=== PATIENT | female | born 1955 | race Caucasian/White ===

== ENCOUNTER 2022-09-05 20:20 | Emergency (ER) | payer MEDICARE, OTHER ==
[~2022-09-05] VITALS: Ht 170.2 cm; Wt 59.0 kg
--- OUTSIDE RECORDS SUMMARY | 2022-09-05 20:22 | XMS ---
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 Kd VISIT COUNT (12 MO.) 1 SOMMER [place] TOTAL 1 NOTE: Visits indicate total known visits. ED/UCC VISIT TRACKING (12 MO.) 09/05/2022 20:21 [facility] TYPE: Emergency COMPLAINT: - [facility] INPATIENT VISIT TRACKING (12 MO.) No inpatient visits to display in this time frame [id number]
[2022-09-05] MEDS ORDERED: NICOTINE GUM4 MG BUCCAL (20:25)
[2022-09-05] MEDS ORDERED: QUETIAPINE FUMA25 MG PO (20:25)
[2022-09-05] MEDS ORDERED: OXYCODONE HCL5 MG PO (20:25)
== END 2022-09-05 23:18 | disposition home or self-care (01) ==
LOC: ED 20:20
PROC: 4A0D7LZ Measurement of Urinary Volume, Via Natural or Artificial Opening (ICD-10-PCS; principal; 2022-09-05)
DX: R55 Syncope and collapse (principal)
CPT/HCPCS: 36415; 51798; 70450; 80053; 81003; 85025; 86850; 86900; 86901; 96374; 99284-25; J2405; J7121

== ENCOUNTER 2024-10-03 21:23 | Inpatient (IN) | payer MEDICARE, MEDICAID ==
[~2024-10-03] VITALS: Ht 170.2 cm; Wt 85.7 kg
[~2024-10-03 21:23] MED LIST: NICOTINE GUM4 MG BUCCAL; OXYCODONE HCL5 MG PO; QUETIAPINE FUMA25 MG PO
[2024-10-03 21:41] LABS: HEMOGLOBIN 14.9 g/dL (12.0-18.0)
[2024-10-03 21:44] LABS: BASOPHILS 0.8 % (0-2); EOSINOPHILS 0.2 % (0-6); HEMATOCRIT 45.1 % (35.0-50.0); LYMPHOCYTES 26.8 % (24-44); MCH 30.2 (27-36); MCV 91.6 fl (81-99); MONOCYTES 6.8 % (0-12); NEUTROPHILS 65.4 % (39-80); PLATELET COUNT 218 K/uL (140-440); RBC 4.92 M/ul (4.3-5.7); RDW 13.7 (10.5-15.0)
[2024-10-03] MEDS ORDERED: IBLOOD GLUCOSE TEST STRIP 1 EA TEST XX ONE (21:45)
[2024-10-03 21:50] LABS: PROTIME 13.1 Sec (11.2-14.2)
[2024-10-03 21:52] LABS: PARTIAL THROMBOPLASTIN TIME 27.3 Sec (22.9-41.3)
[2024-10-03 21:59] LABS: ALBUMIN 3.7 g/dL (3.4-5.0); ALBUMIN/GLOBULIN RATIO 0.97 (1.1-2.4); ALCOHOL, MEDICAL <3 ng/dL (<3); ALKALINE PHOSPHATASE 103 U/L (46-116); ALT (SGPT) 34 U/L (14-59); ANION GAP 16.8 (7-21); AST (SGOT) 82 U/L (15-37); BILIRUBIN, TOTAL 1.2 mg/dL (0.2-1.0); CALCIUM 9.4 mg/dL (8.5-10.1); CARBON DIOXIDE 26 mmol/L (21-32); CHLORIDE 103 mmol/L (98-107); GLOMERULAR FILTRATION RATE,EST 49 mL/min (>60); POTASSIUM 3.8 mmol/L (3.5-5.1); PROTEIN, TOTAL 7.5 g/dL (6.4-8.2); UREA NITROGEN 15 mg/dL (7-18)
[2024-10-03] MEDS ORDERED: ASPIRIN 81 MG CHEW PO ONE (22:15)
[2024-10-03] MEDS ORDERED: NITROGLYCERIN PACKET TOP ONE (22:15)
[2024-10-03 22:27] LABS: BILIRUBIN, URINE POSITIVE (negative); BLOOD/HGB, URINE SMALL (Negative); KETONE, URINE SMALL (Negative); LEUK ESTERASE, URINE SMALL (negative); NITRITE, URINE NEGATIVE (negative); PH, URINE 5.5 (5-7)
[2024-10-03 22:33] LABS: WHITE BLOOD CELLS, URINE 21-40 /HPF (0-5)
[2024-10-03 22:34] LABS: BACTERIA, URINE 2+ /hpf (negative); CASTS, URINE NONE SEEN \\lpf; CRYSTALS, URINE NONE SEEN (0-1+); EPITHELIAL CELLS, URINE SQUAMOUS 2+ /lpf (0-1+)
[2024-10-03 22:35] LABS: COLLECTION TYPE, URINE CLEAN CATCH; REFLEX CULTURE, URINE No (No)
[2024-10-03 22:44] LABS: AMPHETAMINES, URINE NEGATIVE (NEGATIVE); BARBITURATES, URINE NEGATIVE (NEGATIVE); BENZODIAZEPINE, URINE NEGATIVE (NEGATIVE); BUPRENORPHINE, URINE NEGATIVE (NEGATIVE); CANNABINOID, URINE NEGATIVE (NEGATIVE); COCAINE, URINE NEGATIVE (NEGATIVE); ECSTASY, URINE NEGATIVE (NEGATIVE); FENTANYL, URINE NEGATIVE (NEGATIVE); METHADONE, URINE NEGATIVE (NEGATIVE); OPIATES, URINE NEGATIVE (NEGATIVE); OXYCODONE, URINE NEGATIVE (NEGATIVE); PHENCYCLIDINE, URINE NEGATIVE (NEGATIVE)
[2024-10-03] MEDS ORDERED: NEOMYCIN/POLYMYXIN/DEXAMETH OPTH SUSPENSION BOTTLE OD ONE (22:45)
[2024-10-03] MEDS ORDERED: SODIUM CHLORIDE 0.9% 500 ML IV PRN (23:00)
[2024-10-03] MEDS ORDERED: CEFTRIAXONE SODIUM 2 GM VIAL ONE (23:14)
[2024-10-03] MEDS ORDERED: CEFTRIAXONE SODIUM 2 GM in SODIUM CHLORIDE 0.9% 100 ML IV ONE (23:15)
[2024-10-03] MEDS ORDERED: levETIRAcetam 500 MG/5 ML VIAL IV ONE (23:45)
[2024-10-04] VITALS (13 sets, daily range): BP systolic 96–119; BP diastolic 52–90
[2024-10-04 00:12] LABS: PH, VENOUS 7.332 (7.31-7.41)
[2024-10-04] MEDS ORDERED: LORazepam 2 MG/ML VIAL IV ONE (01:30)
[2024-10-04] MEDS ORDERED: LORazepam 2 MG/ML VIAL IV PRN (01:30)
[2024-10-04] MEDS ORDERED: NEOMYCIN/POLYMYXIN/DEXAMETH OPTH SUSPENSION BOTTLE OD SCH (01:30)
[2024-10-04] MEDS ORDERED: ondansetron HCL 4 MG/2 ML VIAL IV PRN ×2 (01:30→09:30)
[2024-10-04] MEDS ORDERED: ACETAMINOPHEN 325 MG TAB PO PRN ×2 (01:30→09:30)
--- NOTE | 2024-10-04 01:50 | NUR ---
PATIENT ARRIVED TO THE UNIT VIA STRETCHER. PATIENT'S SON AT BEDSIDE. PATIENT IS ALERT, ORIENTED TO SELF AND SURROUNDINGS. UNSURE OF EVENTS LEADING TO ADMISSION. PATIENT DENIES ANY PAIN. DOES REPORT RIGHT EYE A "ITCHY". RIGHT EYE IS RED AND SWOLLE, WATERING FREQUENTLY. WARM COMPRESS APPLIED. PATIENT'S LIPS ARE ALSO SWOLLEN WITH AN ABRASION, NO BLEEDING. BRUISING NOTED TO LEFT SIDE/BREAST AND LEFT ARM. PATIENT TOLERATING ROOM AIR, LUNG SOUNDS ARE CLEAR. ABD SOFT, NONTENDER. VS STABLE. PATIENT'S SON ASSIST WITH HISTORY AND ANSWERS MOST QUESTIONS. PATIENT IS DROWSY AND APPEARS TO FALL ASLEEP DURING ADMISSION. ALLOWED PATIENT TO REST. BED ALARM ACTIVE. SON GONE HOME FOR THE NIGHT. CALL [facility] IN REACH.
--- NOTE | 2024-10-04 04:17 | NUR ---
PATIENT APPEARS RESTFUL IN BED. VS STABLE. EYES CLOSED. CALL LIGHT IN REACH.
--- NOTE | 2024-10-04 04:45 | NUR ---
PATIENT ALERT, LAYING IN BED. PATIENT ORIENTED TO PERSON, PLACE, BUT NOT THE YEAR OR EVENT. PATIENT DENIES ANY CONCERNS. DENIES PAIN. VS STABLE. PATIENT DENIES NEED FOR BATHROOM OR WANTING ANY WATER AT THIS TIME. ALLOWED PATIENT TO REST. CALL LIGHT IN REACH. BED ALARM ACTIVE.
--- NOTE | 2024-10-04 05:15 | NUR ---
LAB IN FOR MORNING DRAW. PATIENT IS ALERT AND TALKATIVE. ORIENTED TO HERSELF, SURROUNDINGS, AND FOLLOWS DIRECTIONS. IS UNSURE OF THE DATE AND DOES NOT REMEMBER THE EVENTS LEADING TO ADMISSION. PATIENT DENIES ANY CONCERNS. VS STABLE. PATIENT STATES "I THINK I'M DRUNK". WHEN ASKED IF SHE HAD BEEN DRINKING OR DOING DRUGS PATIENT REPORTS "JUST WHATEVER YOU'VE BEEN PUTTING IN ME" AND POINTING TO HER IV. INFORMED PATIENT ON MEDS SHE HAD RECEIVED AND THE REASON FOR THEM. PATIENT DOES NOT APPEAR TO HAVE A GOOD UNDERSTANDING OF THIS. PATIENT PROVIDED EYE DROPS PER ORDER AND A WARM COMPRESS TO HER EYE. SHE DENIES PAIN IN THE EYE BUT REPORTS ITCHING. PATIENT PROVIDED WARM BLANKET AND THE CALL LIGHT. DENIED NEED TO VOID. BED ALARM ACTIVE.
[2024-10-04 05:41] LABS: BASOPHILS 0.8 % (0-2); EOSINOPHILS 0.4 % (0-6); HEMOGLOBIN 13.2 g/dL (12.0-18.0); LYMPHOCYTES 28.9 % (24-44); MCH 30.9 (27-36); MCHC 33.9 g/dl (30-36); MCV 91.1 fl (81-99); NEUTROPHILS 62.9 % (39-80); PLATELET COUNT 171 K/uL (140-440); RBC 4.28 M/ul (4.3-5.7); RDW 13.8 (10.5-15.0)
[2024-10-04 05:58] LABS: ALBUMIN 3.2 g/dL (3.4-5.0); ALBUMIN/GLOBULIN RATIO 1.03 (1.1-2.4); ANION GAP 12.7 (7-21); BILIRUBIN, TOTAL 0.6 mg/dL (0.2-1.0); BUN/CREATININE RATIO 15.73 (6.0-28.6); CALCIUM 9.1 mg/dL (8.5-10.1); CREATININE, SERUM 0.89 mg/dL (0.55-1.02); POTASSIUM 3.7 mmol/L (3.5-5.1); PROTEIN, TOTAL 6.3 g/dL (6.4-8.2)
--- NOTE | 2024-10-04 07:30 | NUR ---
REPORT RECEIVED FROM AMY JOSÉ. PT RESTING IN BED, EYES CLOSED, RESP EVEN AND UNLABORED.
[2024-10-04] MEDS ORDERED: levETIRAcetam 500 MG TAB PO SCH ×2 (09:00→21:00)
[2024-10-04] MEDS ORDERED: CEFTRIAXONE SODIUM 2 GM in SODIUM CHLORIDE 0.9% 100 ML IV SCH ×3 (09:00→21:00)
--- NOTE | 2024-10-04 09:20 | NUR ---
DOCTOR IN TO SEE PT, SON TRENTON IN TO SEE PT WELL.
--- NOTE | 2024-10-04 10:02 | NUR ---
INTO SEE PATIENT. PATIENT PERSONAL INFORMATION REVIEWED. PATIENT WOULD LIKE A PRIMRARY CARE SET. PATIENT CHOICE LETTER GIVEN. PATIENT REQUESTING [facility]. APPOINTMENT SET UP. PATIENT LIVE IN A HOUSE WITH SON. STEPS INSIDE THE HOME BUT PATIENT LIVES ON MAIN LEVEL. SHE DRIVES BUT RARELY SON DRIVES HER TO THINGS. PATIENT DENIES DIFFCULTY OF PAYING UTLITIES OR OBTAINING FOOD. DOES NOT USE DME. PATIENT HAS A RAMP TO GET INTO THE HOUSE. SON TRENTON AT BEDSIDE STATES HE WILL TAKE HER HOME AT DISCHARGE. NO FUTHER CM NEEDS AT THIS TIME.
--- NOTE | 2024-10-04 10:58 | NUR ---
VISITED VERY BRIEFLY WITH PT PRIOR TO IMAGING. PT SUPPORTED BY SON IN ROOM; PT APPEARED CONFUSED, GREETING ME IF I WAS FAMILIAR EVEN THOUGH THIS WAS OUR FIRST MEETING. PT REMAINED PLEASEANT WHEN SON RE-ORIENTED. PROVIDED PRAYER.
--- NOTE | 2024-10-04 10:59 | NUR ---
MED REC COMPLETE
--- NOTE | 2024-10-04 11:11 | NUR ---
UR CLINICAL REVIEW: 2MN MARTÍNEZ, MEETS INPT FOR ALTERED MENTAL STATUS PERSISTENT FOR SEVERAL HOURS. POTENTIAL SEIZURE DISORDER WITH MEDICATION MANAGEMENT NEEDED. MEDICARE INPT 10/04/24 @ 0119 ORDER MATCHES REG NO AUTH REQUIRED PER MEDICARE RULES DC PLAN PENDING FURTHER EVAL.
--- NOTE | 2024-10-04 11:52 | EKG ---
[facility] [address] [place], [place] [address] Signed Normal sinus rhythm Normal ECG No previous ECGs available Confirmed by Jg Hernandez MD ([id number]) on 10/04/2024 11:52:08 AM Electronically Signed By: JG HERNANDEZ MD 10/04/24 1152 PATIENT NAME: MAXIMUS BOLANOS EILEEN Electrocardiogram DATE OF : 57 PHYSICIAN: JG HERNANDEZ MD REPORT #: [id number] REPORT IS CONFIDENTIAL AND NOT TO BE RELEASED WITHOUT AUTHORIZATION
[2024-10-04] MEDS ORDERED: PHARMACY RENAL DOSE ADJUSTMENT 1 DOSE MISC PO SCH (12:00)
[2024-10-04] MEDS ORDERED: NEOMYCIN/POLYMYXIN/DEXAMETH 3.5 GM TUBE OD SCH (13:00)
--- NOTE | 2024-10-04 13:29 | NUR ---
PT/OT RECCOMEND SENIOR CARE FACILITY. TOOK PATIENT CHOICE LETTER TO PATIENT. STATES "I AM NOT GOING ANYWHERE." ALSO GAVE PATIENT PAID CARE GIVERS PHAMPLET. NO OTHER CM NEEDS AT THIS TIME.
--- NOTE | 2024-10-04 14:08 | NUR ---
SON IN TO SEE PT
[2024-10-04] MEDS ORDERED: NICOTINE POLACRILEX 2 MG GUM MM PRN (15:45)
--- NOTE | 2024-10-04 17:40 | NUR ---
REPORT RECEIVED IN CCU FROM ARNAV OSCAR. PT AMBULATES WITH THIS RN AND FWW FROM ROOM 129 TO ROOM 109. PT TOLERATES WALKING WELL AND FOLLOWS DIRECTION WHILE WALKING. PT IN BED AT THIS TIME. VSS.
--- NOTE | 2024-10-04 18:30 | NUR ---
ASSESSMENT COMPLETE. PT RESTING IN BED AT THIS TIME, WATCHING TELEVISION. UNABLE TO TELL ME THE DATE, UNSURE OF WHY SHE IS IN THE HOSPITAL AND REPEATEDLY ASKING IF SHE CAN GO HOME YET. PT IS PLEASANT AND UNCONCERNED ABOUT HER SHORT TERM MEMORY LOSS. IV IN R AC FLUSHES WNL. SEIZURE PADS PLACED FOR PRECUATION. TELE #[address] PT HAS NO REQUESTS AT THIS TIME, CALL LIGHT IN REACH.
--- NOTE | 2024-10-04 18:45 | NUR ---
PT AMBULATES WITH SBA ONLY, PROVIDES HER OWN JOSE-CARE, AND PROVIDES VOID INTO HAT IN TOILET. URINE NOTED TO BE CONCENTRATED AND EMERY. URINE SUBMITTED TO LAB. PT IS UP IN RECLINER AT THIS TIME, CALL LIGHT IN REACH, CHAIR ALARM ON.
--- NOTE | 2024-10-04 18:46 | NUR ---
PT STANDS FROM RECLINER TO PACE ROOM. PT EDUCATED TO USE CALL LIGHT, VERBALIZES UNDERSTANDING.
--- NOTE | 2024-10-04 18:49 | NUR ---
THIS RN RESPONDS TO CHAIR ALARM GOING ON. PT REPORTS SHE HAS TO PEE. PT AMBULATES WITHOUT ASSISTANCE TO RESTROOM, SCANT VOID AND VERY SMALL NUMBER TWO. PROVIDES HER OWN JOSE-CARE. PT EDUCATED TO USE CALL LIGHT WHEN NEEDING THE RESTROOM. PT VERBALIZES UNDERSTANDING. NO OTHER REQUESTS AT THIS TIME. PT GETS INTO BED AT THIS TIME. PT IS ASKING IF HER SON HAS VISITING TODAY, SHE CANNOT REMEMBER. EXPLAINED TO PT THAT SHE JUST RECENTLY CAME TO THIS ROOM, HER SON HAS NOT VISITED JUST YET. PT AGREEABLE. PT IN BED, BED ALARM ON, BED IN LOWEST POSITION.
--- NOTE | 2024-10-04 19:39 | NUR ---
Got report from fast food shift supervisor nurse.Patient currently sitting up in bed, water at bed side. Seizure padding up. Call light within reach. Denies any needs at this time.
--- NOTE | 2024-10-04 19:53 | NUR ---
IN ROOM FOR EVENING ASSESSMENT. PATIENT CURRENTLY SITTING UP WATCHING TV. PATIENT ON RA AND SL IV. PATIENT DENIES ANY PAIN. SHE HAS WATER AT BED SIDE. BED ALARM ON, SEIZURE PADDING ON SIDERAILS. PATIENT AWARE THAT HER SHORT TERM MEMORY IS NOT LIKE IT USED TO BE. SHE WAS NOT ABLE TO TELL THIS NURSE WHAT SHE HAD FOR DINNER AT THAT UPSET HER A LITTLE. PATIENT DENIES ANY OTHER CARES AT THIS TIME. CALL LIGHT WITHIN REACH. ROOM CLEANED UP.
[2024-10-04] MEDS ORDERED: CEFTRIAXONE SODIUM 2 GM VIAL ONE (21:32)
[2024-10-04 21:42] LABS: BILIRUBIN, URINE POSITIVE (negative); BLOOD/HGB, URINE TRACE-I (Negative); KETONE, URINE SMALL (Negative); LEUK ESTERASE, URINE SMALL (negative); NITRITE, URINE NEGATIVE (negative)
[2024-10-04 21:52] LABS: BACTERIA, URINE 2+ /hpf (negative); CASTS, URINE NONE SEEN \\lpf; COLLECTION TYPE, URINE CLEAN CATCH; CRYSTALS, URINE NONE SEEN (0-1+); EPITHELIAL CELLS, URINE SQUAMOUS 1+ /lpf (0-1+); REFLEX CULTURE, URINE Yes (No)
--- NOTE | 2024-10-04 22:25 | NUR ---
PATIENT DONE WITH IV ANTIBIOTICS. IV FLUSHED AND SL. PT HAS LIGHTS TURNED DOWN AND GOING TO TRY TO GET SOME REST NOW. PATIENT VERY THANKFUL.
[2024-10-05 01:26] VITALS: BP 110/79
[2024-10-05 01:27] VITALS: BP 110/79
--- NOTE | 2024-10-05 01:30 | NUR ---
Awake, sitting edge of bed, bed alrm in place. pt on room air, clear lungs, tele#[address] SR, denies CP. alert and oriented to all except town but gave right name for hospital. Talkative, pleasant and cooperative. Up to BRP, voided small amoaunt of dark yellow strong smelling urine. edema to LE present 1+ mid calves to ankles. ambulated to BRP with SBA/FWW and walked back w/o assit or walker, tolerating well, no gait problems noted. coffee and fresh water given on requests.
--- NOTE | 2024-10-05 04:16 | NUR ---
Respositions self in bed, on room air. bed alarms in place
[2024-10-05 04:50] VITALS: BP 136/66
--- NOTE | 2024-10-05 04:53 | NUR ---
CLINICAL HAEMATOLOGIST OBTAINED VITALS AND I&O. PT STATES NO NEEDS AT THIS TIME. CALL LIGHT WITHIN REACH AND BED ALARM ON.
--- NOTE | 2024-10-05 05:03 | NUR ---
BED ALARM ANSWERED. PT UP TO THE BATHROOM. HEALTH AND SAFETY CONSULTANT ASSISTED PT BACK INTO BED AFTER VOIDING. OUTPUT MEASURED. PT REMINDED TO USE CALL LIGHT. NO FURTHER NEEDS STATED, CALL LIGHT WITHIN REACH AND BED ALARM ON.
[2024-10-05 05:26] LABS: BASOPHILS 0.9 % (0-2); EOSINOPHILS 1.1 % (0-6); HEMOGLOBIN 13.2 g/dL (12.0-18.0); LYMPHOCYTES 30.4 % (24-44); MCHC 33.9 g/dl (30-36); MCV 91.5 fl (81-99); MONOCYTES 6.3 % (0-12); NEUTROPHILS 61.3 % (39-80); PLATELET COUNT 166 K/uL (140-440); RBC 4.26 M/ul (4.3-5.7); RDW 13.7 (10.5-15.0)
[2024-10-05 05:38] LABS: ANION GAP 11.8 (7-21); BUN/CREATININE RATIO 26.25 (6.0-28.6); CREATININE, SERUM 0.8 mg/dL (0.55-1.02); POTASSIUM 3.8 mmol/L (3.5-5.1)
--- NOTE | 2024-10-05 06:31 | NUR ---
down to DI for MRI via w/c
[2024-10-05 06:52] VITALS: BP 136/66
--- NOTE | 2024-10-05 07:00 | NUR ---
back from MARTHA. calling her son at this time, tele#[address], no changes
--- NOTE | 2024-10-05 07:10 | NUR ---
REPORT RECEIVED FROM ARNAV BOWSER. PT UP IN RECLINER AT THIS TIME. NO REQUESTS. CALL LIGHT IN REACH, CHAIR ALARM ON.
--- NOTE | 2024-10-05 08:40 | NUR ---
MEDICATION ADMINISTERED, SEE MAR. PT IS UP IN RECLINER WITH MULTIPLE VISITORS PRESENT. PTs SON WHOM SHE LIVES WITH ARRIVES. PTs SON AND PT BOTH ENDORSE THAT PT IS BACK TO BASELINE AND SHE WOULD LIKE TO GO HOME TODAY. NO REQUESTS AT THIS TIME, CALL LIGHT IN REACH.
[2024-10-05 09:55] VITALS: BP 110/52
--- NOTE | 2024-10-05 10:23 | NUR ---
MD IN TO ASSESS PT AND UPDATE PT AND PTs FAMILY ON PLAN OF CARE, ALL QUESTIONS ANSWERED AND CONCERNS ADDRESSED. PT REMAINS UP IN RECLINER AT THIS TIME, SON AT BEDSIDE.
--- NOTE | 2024-10-05 10:37 | NUR ---
ASSESSMENT COMPLETE. PT EXCITED TO HAVE HEARD SHE IS GOING HOME. SHE IS ALERT AND ORIENTED AND SON STATES AT BASELINE. PT REMOVES HER OWN TELE AND GIVES IT TO THIS RN. PT HAS NO COMPLAINTS OF PAIN OR DISCOMFORT. REMAINS IN RECLINER WHILE SON LEAVES TO TIME CLOCK REPAIRER CLOTHES FOR HER. NO REQUESTS, CALL LIGHT IN REACH.
[2024-10-05 10:43] VITALS: BP 110/52
[2024-10-05] MEDS ORDERED: CEFDINIR300 MG PO (10:49)
[2024-10-05] MEDS ORDERED: KEPPRA1000 MG PO (10:50)
== END 2024-10-05 11:56 | disposition home or self-care (01) | DRG 690 ==
LOC: ED 21:23 → CCU 10-04 01:21 → MS 10-04 17:44
PROVIDERS: Family Medicine; ADMIT Student in an Organized Health Care Education/Training Program; ATTEND Student in an Organized Health Care Education/Training Program
DX: N39.0 Urinary tract infection, site not specified (principal); G40.909 Epilepsy, unspecified, not intractable, without status epilepticus; K76.9 Liver disease, unspecified; M25.552 Pain in left hip; G89.29 Other chronic pain; Z96.651 Presence of right artificial knee joint; I50.9 Heart failure, unspecified; H10.9 Unspecified conjunctivitis; F17.210 Nicotine dependence, cigarettes, uncomplicated; Z90.710 Acquired absence of both cervix and uterus; Z89.611 Acquired absence of right leg above knee
CPT/HCPCS: 36415; 70450; 70496; 70498; 70551; 70552; 71045; 71260; 80048; 80053; 80307; 81001; 82803; 83735; 83880; 84484; 85025; 85379; 85610; 85730; 93005; 93010; 97161; 97165; 97530; 97535; 99285-25; A9270; A9579; G0480; J1953; J2060; J7040; Q9967